=== PATIENT | female | born 1960 | race Caucasian/White ===

== ENCOUNTER 2018-03-04 08:31 | Day surgery (SDC) | payer OTHER ==
[2018-03-04 09:36] VITALS: BMI 27.9
[2018-03-04] MEDS ORDERED: ACETAMINOPHEN 325 MG TABLET (FP) PO PRN (10:00)
[2018-03-04] MEDS ORDERED: CIPROFLOXACIN 0.3% EYE DROPS 5 ML BOTTLE ONE (10:00)
[2018-03-04] MEDS: CIPROFLOXACIN HCL 0.3% OPHTH 2.5ML BOTTLE OP SCH ×3 (10:10→10:20)
[2018-03-04 10:11] VITALS: TEMP 97.7
[2018-03-04] MEDS ORDERED: MIDAZOLAM HCL 2 MG/2 ML SINGLE DOSE VIAL ONE (10:56)
[2018-03-04] MEDS ORDERED: TRIAMCINOLONE ACET 40MG/1ML VIAL ONE (11:03)
[2018-03-04] MEDS ORDERED: LIDOCAINE 1%/EPI 1:100000 (20 ML MULTI DOSE VIAL) ONE (11:04)
[2018-03-04] MEDS ORDERED: LIDOCAINE HCL 2% JELLY (5 ML/TUBE) ONE (11:04)
[2018-03-04] MEDS ORDERED: LIDOCAINE HCL 2% JELLY (5 ML/TUBE) TP ONE (11:21)
[2018-03-04] MEDS ORDERED: POVIDONE-IODINE 5% OPHTHALMIC PREP 30 ML SOLUTION OS ONE (11:22)
[2018-03-04] MEDS ORDERED: LIDOCAINE 1%/EPI 1:100000 (20 ML MULTI DOSE VIAL) IJ ONE (11:34)
[2018-03-04] MEDS ORDERED: BSS (NA/CA/MG/K) BALANCED SALT SOLUTION OPHTH SOLN 15 ML BOTTLE OS ONE (11:34)
[2018-03-04] MEDS ORDERED: TRIAMCINOLONE ACET 40MG/1ML VIAL NR ONE (11:54)
[2018-03-04] MEDS ORDERED: ACETAMINOPHEN 325 MG TABLET (FP) ONE (12:23)
--- NOTE | 2018-03-04 13:17 | OP ---
DATE OF OPERATION: DATE OF DICTATION: 03/04/2018 PREOPERATIVE DIAGNOSIS: Pterygium, left eye. POSTOPERATIVE DIAGNOSIS: Pterygium, left eye. PROCEDURE: Excision of left pterygium with conjunctival autograft, left eye. ANESTHESIA: Topical, MAC. COMPLICATIONS: None. DESCRIPTION OF PROCEDURE: Patient was brought to the operating room and the left eye correctly identified as the operative site. She was then prepped and draped in the usual sterile fashion including 5% Betadine solution in the conjunctival sac and an eyelid drape. An eyelid speculum was then placed into the left eye. The pterygium was inspected, and the nasal border was marked using a marking pen. Two relaxing incisions were made superior and inferior to the pterygium, and dissection was taken down to bare sclera with Ilene scissors. Using blunt dissection with colibri forceps as well as the Ilene scissors, the pterygium was removed from the corneal surface. There was no significant residual tissue on the cornea, but the corneal surface was polished with a 57 blade as well as mine bola. The pterygium was then excised at its base , and no significant bleeding was noted. The conjunctival defect was measured and was 5 mm horizontally x 6 mm vertically. Attention was then placed to the superotemporal conjunctiva, and lidocaine 1% with epinephrine was injected subconjunctivally to elevate the conjunctiva. Using Ilene scissors, a conjunctival autograft was then created. This graft was then brought into place in the nasal conjunctival defect and sutured in place with a total of 5 10-0 nylon sutures in an interrupted manner. No wound gape was noted. At the end of the procedure, the graft was noted to be well secured, the corneal surface clear. Subconjunctival Kenalog was given at the operative site, and topical vancomycin given, the eye patched and the patient discharged from the operating room in a stable condition. JODI ROSENBAUM M.D. [id number] MTDD
[2018-03-04 13:55] VITALS: BP 148/90; PULSE 88
--- NOTE | 2018-03-05 14:38 | PATH ---
Surgical Pathology Report Patient Name: DONTRELL GROSS [facility]. Rec. #: [id number] /Age/Gender: 1960 (Age: 57) / F Account: [id number] Location: [facility] SURGICAL Taken: 03/04/2018 Received: 03/04/2018 Reported: 03/05/2018 Physicians: Agustin Bowman M.D. Specimen(s) Received PTERYGIUM LEFT EYE Clinical History Pterygium left eye Final Diagnosis EYE, LEFT, PTERYGIUM, EXCISION: CONSISTENT WITH PTERYGIUM. Electronically Signed Candice Espinoza M.D. Gross Description Received in formalin, labeled "pterygium left eye" is a davis, irregular portion of soft tissue measuring 0.5 cm. in greatest dimension. The specimen is submitted in toto in one cassette. /03/04/201803/04/2018
== END 2018-03-04 13:00 | disposition home or self-care (01) ==
LOC: JASU-SURG 08:31
PROVIDERS: ATTEND Ophthalmology
PROC: 08U107Z Supplement of Left Eye with Autologous Tissue Substitute, Open Approach (ICD-10-PCS; principal; 2018-03-04 11:00)
DX: H11.002 Unspecified pterygium of left eye (principal)
CPT/HCPCS: 88304-TC

== ENCOUNTER 2022-12-12 05:21 | Day surgery (SDC) | payer MEDICARE, OTHER ==
[2022-12-11 13:06] VITALS: BMI 24.0
[2022-12-12 12:28] VITALS: BP 115/65; PULSE 74; RESP 16; TEMP 97.2
== END 2022-12-12 12:22 | disposition home or self-care (01) ==
LOC: JASU-ENDO 05:21
PROVIDERS: ATTEND Internal Medicine Gastroenterology
PROC: 0DBE8ZX Excision of Large Intestine, Via Natural or Artificial Opening Endoscopic, Diagnostic (ICD-10-PCS; principal; 2022-12-12 10:30)
DX: Z12.11 Encounter for screening for malignant neoplasm of colon (principal); D12.6 Benign neoplasm of colon, unspecified; K57.30 Diverticulosis of large intestine without perforation or abscess without bleeding
CPT/HCPCS: 88305-TC